=== PATIENT | male | born 1970 | race Native Hawaiian/Other Pacific Islander ===

== ENCOUNTER 2023-02-02 10:29 | Emergency (ER) | payer BC, SELFPAY ==
--- NOTE | ~2023-02-02 | XR_ITS ---
XR heel LT min 2V DATE: 02/02/2023 10:56 INDICATION: Left heel pain after yield a TECHNIQUE: Axial and lateral views COMPARISON: None FINDINGS: Minimal plantar and slight posterior calcaneal enthesopathy. No fracture, dislocation or leobardo ne destruction of the calcaneus. Anterior tibial artery calcification. 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 IMPRESSION: Minimal plantar and slight posterior calcaneal enthesopathy Reviewed, dictated and finalized at location A.
[2023-02-02 10:44] VITALS: BP 116/74; PULSE 71; RESP 16; TEMP 37; O2SAT 100
--- NOTE | 2023-02-02 11:09 | ED.EXTPRO ---
HPI - Extremity Problem General Chief complaint: Extremity Problem,Nontraumatic Stated complaint: L ANKLE/HEEL PAIN Time Seen by Provider: 02/02/23 11:09 Source: patient Mode of arrival: ambulatory Limitations: no limitations History of Present Illness HPI Narrative: 52-year-old male presented for complaint of left posterior heel pain for about 3 days. Pain is worse when walking. He states this started 2 days after doing yoga, stating he pushed himself to stretch the heel more, but has been doing yoga for over a year. He denies numbness tingling, weakness, swelling or decreased range motion to the ankle. Endorses a history of gout but states he never has gout in the main joints. Taking Aleve, and stopped exercising. Related Data Allergies Allergy/AdvReac Type Severity Reaction Status Date / Time No Known Allergies Allergy Verified 02/02/23 10:41 Review of Systems Review of Systems: CONSTITUTIONAL: Denies body aches, fever, chills EYES: Denies visual changes ENT: Denies rhinorrhea, congestion CARDIOVASCULAR: Denies chest pain, palpitations, or edema. RESPIRATORY: Denies cough or dyspnea. GASTROINTESTINAL: Denies abdominal pain, nausea, vomiting, or diarrhea. SKIN: Denies rash, itching, or wounds. MUSCULOSKELETAL: Reports left heel pain Denies back pain, or myalgia. NEUROLOGIC: Denies headache, numbness, tingling, or weakness. All systems reviewed & are unremarkable except as noted in HPI and below PMFSH Past Medical History Medical History (Updated 02/02/23 @ 11:29 by Sonia Guan APRN) Gout Social History Social History Smoking status: Never smoker Alcohol intake: current Substance use: never Lack of Transportation: No Lack of Food: Never True Current Housing: I Have Housing Concerned About Future Housing: No Difficulty Paying Gas/Electric Bills: No Difficulty Paying for Meds: No Currently Unemployed: No Education: Bachelor's Degree Difficulty w/ Childcare or Family Care: No Living arrangements: with family Gender identity (if verbalized by the patient): Male Comments At time of signature, I have reviewed and agree with nursing past medical, surgical, social and family history unless otherwise noted. Please see nursing chart for further information. There is no relevant family history pertinent to the presenting complaint Exam Narrative: GENERAL: Well-appearing, and in no acute distress. HEAD: Normocephalic, atraumatic. EYES: conjunctivae clear NECK: Supple. CHEST: Speaks in full sentences. No respiratory distress. HEART: Regular rate and rhythm. Normal and equal peripheral pulses. EXTREMITIES: Left posterior ankle with moderate erythema and warmth approx 2cm diameter. Point tenderness to posterior heel c/w achilles insertion site. No swelling. Negative Jane test. Left Foot/ankle has normal strength and sensation, normal range of motion with flexion/extension, but endorses mild pain with movement. No ecchymosis, No open wounds, or obvious deformity; alignment normal, pulse palpable and equal bilaterally, skin warm, dry, pink. Capillary refill less than 3 seconds. SKIN: Warm, dry, no rash. NEURO: Alert and oriented x3. PSYCH: Normal mood and affect Extrem: Ankle/foot/toe images: 1. Location of erythema, warmth, pain Course Course Emergency Course: Patient is aware of diagnosis, understands and agrees to treatment plan. Anticipatory guidance given. Patient agrees to follow-up as directed and is aware of reasons to seek care at the emergency department. Portions of this record may have been created with voice recognition software Level of Care: Express Care Visit Vital Signs Vital signs: Vital Signs Temperature 98.6 F 02/02/23 10:44 Pulse Rate 71 02/02/23 10:44 Respiratory Rate 16 02/02/23 10:44 Blood Pressure 116/74 02/02/23 10:44 Pulse Oximetry 100 02/02/23 10:44
== END 2023-02-02 11:27 | disposition home or self-care (01) ==
PROVIDERS: Emergency Provider Nurse Practitioner Family; PCP Internal Medicine
DX: M79.672 Pain in left foot (principal)
CPT/HCPCS: 73650; 99213; G0463